=== PATIENT | male | born 2000 | race Hispanic/Latino ===

== ENCOUNTER 2022-07-29 16:34 | Emergency (ER) | payer BC | END 2022-07-29 18:55 | disposition home or self-care (01) | LOC: CSHERS 16:34 | DX: S62.306A Unspecified fracture of fifth metacarpal bone, right hand, initial encounter for closed fracture (principal); W26.8XXA Contact with other sharp object(s), not elsewhere classified, initial encounter | CPT/HCPCS: 29125 ==